=== PATIENT | female | born 1980 | race Caucasian/White ===

== ENCOUNTER → 2017-02-02 | Outpatient (CLI) | payer BC | LOC: ECHO 11:30 | DX: I49.9 Cardiac arrhythmia, unspecified (principal) | CPT/HCPCS: ECHO; 93306 ==

== ENCOUNTER → 2017-02-02 | Outpatient (CLI) | payer BC | LOC: DTC 14:16 | DX: Z71.3 Dietary counseling and surveillance (principal); E11.9 Type 2 diabetes mellitus without complications; Z79.82 Long term (current) use of aspirin; Z79.1 Long term (current) use of non-steroidal anti-inflammatories (NSAID); Z79.84 Long term (current) use of oral hypoglycemic drugs; Z79.4 Long term (current) use of insulin; Z79.899 Other long term (current) drug therapy; E28.2 Polycystic ovarian syndrome; E07.9 Disorder of thyroid, unspecified; Z88.0 Allergy status to penicillin ==